=== PATIENT | female | born 1985 | race Two or more races ===

== ENCOUNTER 2016-12-07 20:22 | Emergency (ER) | payer OTHER ==
[~2016-12-07] VITALS: Ht 149.9 cm; Wt 61.2 kg
[2016-12-07] MEDS ORDERED: WELLBUTRIN XL150 M2 (20:35)
[2016-12-07] MEDS ORDERED: BIRTH CONTROL PILL PO (20:35)
[2016-12-07] MEDS ORDERED: AMLODIPINE-BEN1 EACH PO (20:35)
== END 2016-12-07 21:23 | disposition home or self-care (01) ==
LOC: SED 20:22
DX: S01.81XA Laceration without foreign body of other part of head, initial encounter (principal); I10 Essential (primary) hypertension; Z79.899 Other long term (current) drug therapy; W01.10XA Fall on same level from slipping, tripping and stumbling with subsequent striking against unspecified object, initial encounter; Y93.02 Activity, running; Y92.830 Public park as the place of occurrence of the external cause
CPT/HCPCS: 12051; 99283